=== PATIENT | male | born 1950 | race Caucasian/White ===

== ENCOUNTER → 2017-04-30 | Outpatient (CLI) | payer MEDICARE, MEDICAID ==
[~2017-04-30] MED LIST: METO25TA35 PO; ROSU20TA PO
== END | disposition home or self-care (01) ==
LOC: STAR 14:56
PROVIDERS: ATTEND Surgery
DX: Z01.818 Encounter for other preprocedural examination (principal); K43.9 Ventral hernia without obstruction or gangrene; Z87.891 Personal history of nicotine dependence
CPT/HCPCS: 93005

== ENCOUNTER 2017-05-07 11:01 | Day surgery (SDC) | payer MEDICARE, MEDICAID ==
[2017-04-30 15:22] VITALS: BP 138/96
[~2017-05-07] VITALS: Ht 157.5 cm; Wt 85.0 kg
[~2017-05-07 11:01] MED LIST changes: +BACITRACIN 50,000 UNIT ONE; +BUPIVACAINE/PF 0.5% ONE; +EPINEPHRINE 1 MG/ML, 1ML ONE
[2017-05-07 11:54] VITALS: BP 138/96
[2017-05-07] MEDS ORDERED: LACTATED RINGERS 1,000 ML IV SCH (11:58)
[2017-05-07] MEDS ORDERED: BUPIVACAINE/PF 0.5% ONE (12:59)
[2017-05-07] MEDS ORDERED: EPINEPHRINE 1 MG/ML, 1ML ONE (12:59)
[2017-05-07] MEDS ORDERED: BACITRACIN 50,000 UNIT ONE (12:59)
[2017-05-07] MEDS ORDERED: FENTANYL PF 100 MCG/2ML ONE (13:07)
[2017-05-07] MEDS ORDERED: HYDROmorphone 1 MG/ML, 1ML ONE ×2 (13:07→15:16)
[2017-05-07] MEDS ORDERED: MIDAZOLAM 1 MG/ML, 2ML ONE (13:09)
[2017-05-07] MEDS ORDERED: ROCURONIUM 10 MG/ML ONE (13:21)
[2017-05-07] MEDS ORDERED: ONDANSETRON 2MG/ML, 2ML ONE (13:21)
[2017-05-07] MEDS ORDERED: NEOSTIGMINE 1 MG/ML, 10ML ONE (13:21)
[2017-05-07] MEDS ORDERED: SUCCINYLCHOLINE 20 MG/ML, 10ML ONE (13:21)
[2017-05-07] MEDS ORDERED: PHENYLEPHRINE 10 MG/ML ONE (13:21)
[2017-05-07] MEDS ORDERED: PROPOFOL 10 MG/ML, 20ML ONE (13:21)
[2017-05-07] MEDS ORDERED: GLYCOPYRROLATE 0.2MG/1ML ONE (13:21)
[2017-05-07] MEDS ORDERED: METOPROLOL 1 MG/ML, 5ML ONE (13:21)
[2017-05-07] MEDS ORDERED: DEXAMETHASONE 4 MG/ML, 1ML ONE (13:21)
[2017-05-07] MEDS ORDERED: CEFAZOLIN 1,000 MG ONE (13:21)
[2017-05-07] MEDS ORDERED: OXYcodone 5 MG/5 ML ORAL.SOL UDC PO PRN (15:00)
[2017-05-07] MEDS ORDERED: FENTANYL PF 100 MCG/2ML IV PRN (15:00)
[2017-05-07] MEDS ORDERED: LABETALOL 5MG/ML, 20ML IV PRN (15:00)
[2017-05-07] MEDS ORDERED: ONDANSETRON 2MG/ML, 2ML IVPush PRN (15:00)
[2017-05-07] MEDS ORDERED: KETOROLAC 30 MG/1 ML IV PRN (15:00)
[2017-05-07] MEDS ORDERED: METOPROLOL 1 MG/ML, 5ML IV PRN (15:00)
[2017-05-07] MEDS ORDERED: ACETAMINOPHEN 325 MG TABLET PO PRN (15:00)
[2017-05-07] MEDS ORDERED: hydrALAzine 20 MG/ML, 1ML IV PRN (15:00)
[2017-05-07] MEDS ORDERED: KETOROLAC 30 MG/1 ML ONE (15:08)
[2017-05-07] MEDS ORDERED: OXYcodone 5 MG/5 ML ORAL.SOL UDC ONE (15:09)
[2017-05-07] MEDS: HYDROmorphone 1 MG/ML, 1ML IV PRN ×2 (15:17→15:34)
== END 2017-05-07 19:10 ==
LOC: OUT 11:01
PROVIDERS: ATTEND Surgery
DX: K43.6 Other and unspecified ventral hernia with obstruction, without gangrene (principal); I10 Essential (primary) hypertension; Z88.5 Allergy status to narcotic agent; Z81.1 Family history of alcohol abuse and dependence; Z83.3 Family history of diabetes mellitus; Z80.1 Family history of malignant neoplasm of trachea, bronchus and lung; Z98.890 Other specified postprocedural states
CPT/HCPCS: 49653; C1781; J0171; J0330; J0690; J1100; J1170; J1885; J2250; J2370; J2405; J2704; J2710; J3010; J3490; J7120

== ENCOUNTER → 2017-06-24 | Outpatient (CLI) | payer MEDICARE, MEDICAID ==
[2017-06-21 11:00] LABS: HEMATOCRIT 54.8 % (39.2-51.8); WHITE BLOOD COUNT 10.4 x10^3/uL (3.4-10)
[2017-06-21 11:04] VITALS: BP 124/82
[2017-06-21 11:07] LABS: ASPARTATE AMINO TRANSFERASE 15 U/L (15-37); BLOOD UREA NITROGEN 21 mg/dL (7-18)
[2017-06-21 11:20] LABS: HIV 1&2 ANTIBODY SCREEN Nonreactive (Nonreactive); HIV-1 p24 ANTIGEN Nonreactive (Nonreactive)
[~2017-06-24] VITALS: Ht 165.1 cm; Wt 82.9 kg
[~2017-06-24] MED LIST changes: -BACITRACIN 50,000 UNIT ONE; -BUPIVACAINE/PF 0.5% ONE; -EPINEPHRINE 1 MG/ML, 1ML ONE; +LACTATED RINGERS 1,000 ML IV SCH; +LIDOCAINE 1%, 2ML SQ PRN; +VANCOMYCIN PMX 1GM/200ML 200 ML IV STA
[2017-06-24 08:08] VITALS: BP 124/82
[2017-06-24 08:10] LABS: DAU SCREEN DISCLAIMER
== END ==
LOC: ORIP 07:41 → SDC 07:41 → UNDOADMIN 07:41 → UNDODISIN 09:05 → EDSTATUS 09:30
PROVIDERS: ATTEND Orthopaedic Surgery
DX: Z01.818 Encounter for other preprocedural examination (principal); M16.12 Unilateral primary osteoarthritis, left hip
CPT/HCPCS: 36415; 80053; 80307; 81003; 85025; 86703; 86850; 86900; 87081; 87899; J7120; G0435; G0479

== ENCOUNTER → 2020-12-29 | Outpatient (CLI) | payer MEDICARE, MEDICAID ==
[~2020-12-29] MED LIST changes: -LACTATED RINGERS 1,000 ML IV SCH; -LIDOCAINE 1%, 2ML SQ PRN; -ROSU20TA PO; +ROSU20TA2 PO; -VANCOMYCIN PMX 1GM/200ML 200 ML IV STA
== END | disposition home or self-care (01) ==
LOC: CVU 07:30
PROVIDERS: ATTEND Registered Nurse
DX: J96.11 Chronic respiratory failure with hypoxia (principal); I48.91 Unspecified atrial fibrillation; I10 Essential (primary) hypertension; F12.90 Cannabis use, unspecified, uncomplicated; Z87.891 Personal history of nicotine dependence
CPT/HCPCS: 71250; 93306